=== PATIENT | female | born 1940 | race Caucasian/White ===

== ENCOUNTER → 2016-06-20 | Outpatient (CLI) | payer MEDICARE, BC, MEDICAID | END | disposition home or self-care (01) | LOC: RAD.S 10:30 | DX: I73.9 Peripheral vascular disease, unspecified (principal) ==

== ENCOUNTER 2016-07-12 15:43 | Emergency (ER) | payer MEDICARE, BC, MEDICAID ==
--- NOTE | 2016-07-20 15:21 | ER ---
ADMIT: 07/12/2016 RM/LOC: ER [facility] MR#: [id number] [id number] [place] [address] [place] [address] Emergency Room Report SEX: F AGE: 76 : 1940 DATE: 07/12/2016 ADDENDUM: CHIEF COMPLAINT: Fall. HISTORY OF PRESENT ILLNESS: This is a 76-year-old female who tripped over step and fell onto the left side of her face and knee. X-rays done of her knee that were negative for any fracture. CT of her head and orbits was done. She does have an inferior orbital fracture with small amount of blood in the maxillary, also the radiologist mentioned foreign body in the globe, which I asked her about that, she said she did have a foreign body years ago into that eye, that is not anything new. CLINICAL IMPRESSION: Inferior orbital fracture. I did speak with Dr. Denise, he will see her in 5 days. Send her home with Augmentin for infection prevention and [place] for pain. Having her followup with Dr. Denise again in 5 days. MICHAELLE De La Rosa / Nilesh Koenig MD / samuel JOB #: [id number] CC: Nilesh Koenig MD, Attending Physician Dago Dhillon MD, Family Physician
== END 2016-07-12 19:15 | disposition home or self-care (01) ==
LOC: ER 15:43
DX: S02.82XA Fracture of other specified skull and facial bones, left side, initial encounter for closed fracture (principal); S00.212A Abrasion of left eyelid and periocular area, initial encounter; W01.0XXA Fall on same level from slipping, tripping and stumbling without subsequent striking against object, initial encounter